=== PATIENT | male | born 2005 | race Caucasian/White ===

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

== ENCOUNTER → 2023-03-02 | Outpatient (CLI) | payer BC ==
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
== END | disposition home or self-care (01) ==
LOC: RADXRYALE 11:06
PROVIDERS: ATTEND Physician Assistant
DX: R06.02 Shortness of breath (principal)
CPT/HCPCS: 71046